=== PATIENT | male | born 1985 | race Caucasian/White ===

== ENCOUNTER 2017-08-30 17:32 | Emergency (ER) | payer OTHER ==
[2017-08-30 17:49] VITALS: BMI 28.8
--- NOTE | 2017-08-30 18:09 | PDOC ---
History of Present Illness - General Chief Complaint: Hematuria Stated Complaint: PAIN Time Seen by Provider: 08/30/17 17:59 - History of Present Illness Initial Comments: 31-year-old male presents for evaluation of one day of hematorrhea. He states he is not sexually active he denies any associated pain. No other associated symptoms. This has not happened to him in the past. 08/30/17 18:06 Past History - Past Medical History Allergies/Adverse Reactions: Allergies Allergy/AdvReac Type Severity Reaction Status Date / Time ampicillin Allergy Unknown Verified 08/30/17 17:46 Penicillins Allergy Unknown Verified 08/30/17 17:46 Home Medications: Ambulatory Orders Citalopram Hydrobromide [Citalopram HBr] 20 mg PO ASDIR 08/30/17 Risperidone [Risperdal] 1 mg PO BID 08/30/17 - Suicide/Smoking/Psychosocial Hx Smoking History: Never smoked Review of Systems - Review of Systems : Yes: See HPI, Hematuria All Other Systems: Reviewed and Negative *Physical Exam - Vital Signs Last Vital Signs Temp Pulse Resp BP Pulse Ox 98.0 F 96 H 18 132/79 99 08/30/17 17:45 08/30/17 17:45 08/30/17 17:45 08/30/17 17:45 08/30/17 17:45 - Physical Exam Comments: GENERAL: The patient is awake, alert, and fully oriented, in no acute distress. HEAD: Normal with no signs of trauma. EYES: Pupils equal, round and reactive to light, extraocular movements intact, sclera anicteric, conjunctiva clear. ENT: Ears normal, nares patent, oropharynx clear without exudates. Moist mucous membranes. NECK: Normal range of motion, supple without lymphadenopathy, JVD, or masses. LUNGS: Breath sounds equal, clear to auscultation bilaterally. No wheezes, and no crackles. HEART: Regular rate and rhythm, normal S1 and S2 without murmur, rub or gallop. ABDOMEN: Soft, nontender, normoactive bowel sounds. No guarding, no rebound. No masses. EXTERNAL GENETALIA: The external genitalia is normal without tenderness masses or any indication of blood around the meatus. EXTREMITIES: Normal range of motion, no edema. No clubbing or cyanosis. No cords, erythema, or tenderness. NEUROLOGICAL: Cranial nerves II through XII grossly intact. Normal speech, normal gait. PSYCH: Normal mood, normal affect. SKIN: Warm, Dry, normal turgor, no rashes or lesions noted. 08/30/17 18:08 Medical Decision Making - Medical Decision Making -year-old healthy male with hematorrhea times one day his exam is unimpressive I await urinalysis. 08/30/17 18:09 08/30/17 18:45 There is mild hematuria on urinalysis. I will send him home with urology follow- up in the next day or 2 he is hemodynamically stable. His exam is otherwise benign. 08/30/17 19:30 There was no orthostatic changes. *DC/Admit/Observation/Transfer Diagnosis at time of Disposition: Hematuria - Discharge Dispostion Disposition: HOME Condition at time of disposition: Stable Decision to Admit order: No - Referrals Referrals: Rick Bautista MD [Primary Care Provider] - Finn Marvin MD., MD [Staff Physician] - - Patient Instructions Printed Discharge Instructions: Blood in Urine, DI for Hematuria Additional Instructions: You do have blood in urine. Your examination is otherwise normal. It's very important few to follow-up with urology tomorrow return to the emergency room if your symptoms worsen or go unresolved or if you experience symptoms such as lightheadedness fever chills or night sweats prior to follow-up. - Post Discharge Activity
[2017-08-30 18:38] LABS: URINE APPEARANCE CLEAR; URINE BILIRUBIN NEGATIVE (<2.0 mg/dL); URINE BLOOD 3+ (NEGATIVE); URINE COLOR LTYELLOW; URINE GLUCOSE (UA) NEGATIVE (NEGATIVE); URINE KETONE NEGATIVE (NEGATIVE); URINE LEUK ESTERASE NEGATIVE (NEGATIVE); URINE NITRITE NEGATIVE (NEGATIVE); URINE PROTEIN NEGATIVE (NEGATIVE); URINE UROBILINOGEN NEGATIVE mg/dL (0.2-1.0)
[2017-08-30 19:13] VITALS: BP 128/72; PULSE 89; TEMP 97.9
== END 2017-08-30 19:52 | disposition home or self-care (01) ==
LOC: JERFT 17:32
DX: R31.9 Hematuria, unspecified (principal)
CPT/HCPCS: 81003; 81015; 87086; 99281-25

== ENCOUNTER 2019-06-04 06:16 | Emergency (ER) | payer OTHER ==
[2019-06-04 07:38] VITALS: BMI 28.3
[2019-06-04] MEDS ORDERED: SODIUM CHLORIDE 1,000 ML IV STA (07:42)
[2019-06-04] MEDS ORDERED: ACETAMINOPHEN 1000 MG/100 ML VIAL (NON FORMULARY) IVPB ONE (07:42)
--- NOTE | 2019-06-04 07:49 | PDOC ---
History of Present Illness - General Chief Complaint: Pain, Acute Stated Complaint: PAIN Time Seen by Provider: 06/04/19 07:34 History Source: Patient, Parent(s) Exam Limitations: No Limitations - History of Present Illness Initial Comments: 06/04/19 07:45 Patient is a 33-year-old male with developmental delays who presents to the ED with his parents for left-sided abdominal pain that started about midnight. Patient states that the pain is constant and nonradiating. He denies any fevers or chills. Denies any nausea, vomiting, diarrhea. He has no dysuria or hematuria. He has not taken anything for his symptoms. The pain has been unrelenting. The patient is not a smoker. He is allergic to penicillin. 06/04/19 07:46 Past History - Past Medical History Allergies/Adverse Reactions: Allergies Allergy/AdvReac Type Severity Reaction Status Date / Time ampicillin Allergy Unknown Verified 06/04/19 07:32 Penicillins Allergy Unknown Verified 06/04/19 07:32 Home Medications: Ambulatory Orders Citalopram Hydrobromide [Citalopram HBr] 20 mg PO DAILY 08/30/17 Risperidone [Risperdal] 1 mg PO HS 08/30/17 Hydrocodone/Acetaminophen [[place] 5-325 Tablet] 1 each PO Q6H PRN #12 tablet MDD 4 06/04/19 Tamsulosin HCl [Flomax] 0.4 mg PO DAILY 7 Days #7 cap 06/04/19 - Psycho Social/Smoking Cessation Hx Smoking History: Never smoked Hx Alcohol Use: No Drug/Substance Use Hx: No Review of Systems - Review of Systems Comments:: 06/04/19 07:47 - Review of Systems Able to Perform ROS?: Yes Constitutional: No: Fever, Chills, Loss of Appetite, Night Sweats, Weakness HEENTM: No: Eye Pain, Vision changes, Ear Pain, Throat Pain, Throat Swelling, Mouth Pain, Difficulty Swallowing Respiratory: No: Cough, Shortness of Breath, Wheezing, Sputum Production Cardiac (ROS): No: Chest Pain, Chest Tightness, Palpitations, Irregular Heart Beat, Edema ABD/GI: No: Nausea, Vomiting, Diarrhea; positive: Left-sided abdominal pain : No Dysuria, No Hematuria, No Frequency, No Urgency, No Penile Discharge/Pain Musculoskeletal: No: Muscle Pain, Back Pain, Joint Pain, Muscle Weakness, Neck Pain Integumentary: No: Lesions, Rash Neurological: No: Headache, Numbness, Tingling, Weakness, Speech Difficulties *Physical Exam - Vital Signs Last Vital Signs Temp Pulse Resp BP Pulse Ox 98.4 F 115 H 20 133/89 98 06/04/19 07:36 06/04/19 07:36 06/04/19 07:36 06/04/19 07:36 06/04/19 07:36 - Physical Exam 06/04/19 07:47 - Physical Exam General Appearance: Nourished, Appropriately Dressed, No Distress HEENT: EOMI, Normal Voice, No Muffled/Hoarse voice, No Nasal Congestion, No Rhinorrhea, Hearing Grossly Normal Neck: Supple, No Lymphadenopathy (R), No Lymphadenopathy (L), No Rigidity, No Decreased range of motion Respiratory/Chest: Lungs Clear, Normal Breath Sounds. No Respiratory Distress, No Accessory Muscle Use Cardiovascular: Regular Rhythm, Regular Rate, S1, S2 Gastrointestinal/Abdominal: Normal Bowel Sounds, Soft. No Rebound, No Rigidity; left upper quadrant and left mid abdominal tenderness to palpation. No rigidity. No CVA tenderness bilateral. Moderate voluntary guarding. Musculoskeletal: Normal Inspection. No Decreased Range of Motion Extremity: Normal Capillary Refill, Normal Inspection Integumentary: Normal Color, Dry. 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 Plan: -Saline lock and fluids ordered -Labs ordered -CT abdomen pelvis with contrast ordered -Tylenol IVPB ordered -Will reassess 06/04/19 11:15 The patient and his family have been made aware that he has a 3 mm stone on the left with mild hydronephrosis. The patient will likely be able to pass the stone. We will discharge him with Flomax and [place] for the pain. He will follow-up with urology, Dr. Marvin, for further evaluation and treatment. The family understands and agrees with this treatment and plan. The patient is also been given strainers and has been encouraged to use them and try to catch the stone. The patient is stable for discharge. Discharge - Discharge Information Problems reviewed: Yes Clinical Impression/Diagnosis: Left renal stone Condition: Stable Disposition: HOME - Additional Discharge Information Prescriptions: Tamsulosin HCl [Flomax] 0.4 mg PO DAILY #7 capsule Hydrocodone/Acetaminophen [[place] 5-325 Tablet] 1 each PO Q6H PRN #12 tablet MDD 4 PRN Reason: Pain - Follow up/Referral Referrals: Romel Kumari MD [Staff Physician] - Finn Marvin MD., MD [Staff Physician] - Call tomorrow - Patient Discharge Instructions Patient Printed Discharge Instructions: DI for Kidney Stones Additional Instructions: Get plenty of rest and drink plenty of water. Take the Flomax as prescribed. Take the [place] as needed only for severe pain. You can take ibuprofen for pain as well. Follow-up with urology within the next few days for repeat evaluation. A referral has been given to you and several names have been given. Return to the emergency department for high fevers, shaking chills, profuse vomiting, severe pain or any other worsening symptoms. - Post Discharge Activity
[2019-06-04] MEDS ORDERED: ACETAMINOPHEN INJECTION 100 ML IVPB ONE (07:51)
[2019-06-04 08:25] LABS: BASO % 0.5 % (0-2.0); EOS % 0.4 % (0-4.5); HEMATOCRIT 43.7 % (35.4-49); HEMOGLOBIN 15.3 GM/dL (11.7-16.9); LYMPH % 17.2 % (8-40); MCH 31.2 pg (25.7-33.7); MEAN CELL VOLUME 89.1 fl (80-96); MEAN PLT VOLUME 6.8 fl (7.5-11.1); MONO % 8.2 % (3.8-10.2); NEUT % 73.7 % (42.8-82.8); PLATELET COUNT 289 K/MM3 (134-434); RBC 4.91 M/mm3 (4.00-5.60); RDW 12.7 % (11.9-15.9); WHITE BLOOD COUNT 11.7 K/mm3 (4.0-10.0)
[2019-06-04 08:57] LABS: ALBUMIN 4.1 g/dl (3.4-5.0); BILIRUBIN,TOTAL 1.2 mg/dL (0.2-1); BLOOD UREA NITROGEN 11.3 mg/dL (7-18); CALCIUM 9.5 mg/dL (8.5-10.1); POTASSIUM 3.9 mmol/L (3.5-5.1); TOT PROT 7.8 g/dl (6.4-8.2)
[2019-06-04 09:15] LABS: EPI CELLS 0.3 /HPF (0-5/HPF); HYALINE CASTS 3 /lpf (0-8); URINE APPEARANCE CLEAR; URINE BACTERIA 0.2 /hpf (NEGATIVE); URINE BILIRUBIN NEGATIVE (NEGATIVE); URINE COLOR YELLOW; URINE GLUCOSE (UA) NEGATIVE (NEGATIVE); URINE KETONE NEGATIVE (NEGATIVE); URINE LEUK ESTERASE NEGATIVE (NEGATIVE); URINE NITRITE NEGATIVE (NEGATIVE); URINE PROTEIN NEGATIVE (NEGATIVE); URINE RBC 171 /hpf (0-4); URINE UROBILINOGEN 0.2 mg/dL (0.2-1.0); URINE WBC 1 /hpf (0-5)
[2019-06-04 11:29] VITALS: BP 129/72; PULSE 104; TEMP 98.2
== END 2019-06-04 11:41 | disposition home or self-care (01) ==
LOC: JER 06:16
DX: N13.2 Hydronephrosis with renal and ureteral calculous obstruction (principal); R62.50 Unspecified lack of expected normal physiological development in childhood; Z88.0 Allergy status to penicillin
CPT/HCPCS: 36415; 74176-TC; 80053; 81003; 83690; 85025; 87086; 99285-25; J0131; J7030

== ENCOUNTER 2021-09-04 19:20 | Emergency (ER) | payer OTHER ==
[2021-09-04 19:31] VITALS: BP 124/86; PULSE 105; TEMP 98; BMI 38.0
== END 2021-09-04 20:40 | disposition home or self-care (01) ==
LOC: JER 19:20 → JERFT 19:20
DX: S63.634A Sprain of interphalangeal joint of right ring finger, initial encounter (principal); Y99.9 Unspecified external cause status
CPT/HCPCS: 73130-TC-RT-FY; 99283-25

== ENCOUNTER 2021-11-26 10:09 | Emergency (ER) | payer OTHER ==
[2021-11-26 10:30] VITALS: BP 116/79; PULSE 105; RESP 22; TEMP 98.1; BMI 34.2
== END 2021-11-26 12:01 | disposition home or self-care (01) ==
LOC: JER 10:09
DX: H66.90 Otitis media, unspecified, unspecified ear (principal); R59.9 Enlarged lymph nodes, unspecified
CPT/HCPCS: 99283-25

== ENCOUNTER 2022-10-18 18:43 | Emergency (ER) | payer OTHER ==
[2022-10-18 18:57] VITALS: PULSE 107; TEMP 98.7; BMI 32.1
[2022-10-18 21:23] LABS: EPI CELLS 2 /uL (0-25.1); HYALINE CASTS 0 /uL (0-3.1); PH,URINE 5.5 (5.0-8.0); URINE APPEARANCE CLEAR; URINE BACTERIA 4 /uL (0-1359); URINE BILIRUBIN NEGATIVE (NEGATIVE); URINE COLOR YELLOW; URINE GLUCOSE (UA) NEGATIVE (NEGATIVE); URINE KETONE NEGATIVE (NEGATIVE); URINE LEUK ESTERASE NEGATIVE (NEGATIVE); URINE NITRITE NEGATIVE (NEGATIVE); URINE PROTEIN NEGATIVE (NEGATIVE); URINE RBC 1182 /uL (0-23.9); URINE UROBILINOGEN 0.2 mg/dL (0.2-1.0); URINE WBC 15 /uL (0-25.8)
[2022-10-18 22:50] LABS: BASO % 0.4 % (0-2.0); EOS % 1.6 % (0-4.5); HEMOGLOBIN 17.3 GM/dL (11.7-16.9); LYMPH % 34.5 % (8-40); MCH 30.7 pg (25.7-33.7); MCHC 34.6 g/dl (32.0-35.9); MEAN CELL VOLUME 88.6 fl (80-96); MEAN PLT VOLUME 6.4 fl (7.5-11.1); MONO % 7.8 % (3.8-10.2); NEUT % 55.7 % (42.8-82.8); PLATELET COUNT 316 10^3/uL (134-434); RBC 5.64 M/mm3 (4.00-5.60); RDW 13.4 % (11.9-15.9); WHITE BLOOD COUNT 10.3 K/mm3 (4.0-10.0)
[2022-10-18 23:21] LABS: POTASSIUM 4.1 mmol/L (3.5-5.1)
[2022-10-18 23:22] VITALS: BP 114/88; RESP 14
[2022-10-18 23:23] LABS: ALBUMIN 4.1 g/dl (3.4-5.0); CALCIUM 9.1 mg/dL (8.5-10.1)
[2022-10-18 23:24] LABS: BLOOD UREA NITROGEN 8.2 mg/dL (7-18)
[2022-10-18 23:27] LABS: CREATININE 0.9 mg/dL (0.55-1.3)
[2022-10-18 23:28] LABS: BILIRUBIN,TOTAL 0.4 mg/dL (0.2-1); TOT PROT 8.3 g/dl (6.4-8.2)
== END 2022-10-19 00:26 | disposition home or self-care (01) ==
LOC: JER 18:43
DX: N50.812 Left testicular pain (principal); R21 Rash and other nonspecific skin eruption; L29.9 Pruritus, unspecified; R10.9 Unspecified abdominal pain; L73.1 Pseudofolliculitis barbae; W21.03XA Struck by baseball, initial encounter; Y93.64 Activity, baseball
CPT/HCPCS: 36415; 76870-TC; 80053; 81003; 85025; 87086; 99284-25

== ENCOUNTER 2023-08-17 17:23 | Emergency (ER) | payer OTHER ==
[2023-08-17 17:41] VITALS: BP 115/67; PULSE 79; RESP 18; TEMP 98.3; BMI 30.2
[2023-08-17] MEDS ORDERED: IBUPROFEN 600 MG TABLET (FP) PO ONE (19:39)
[2023-08-17] MEDS: IBUPROFEN 600 MG TABLET (FP) PO ONE (19:41)
== END 2023-08-17 21:25 | disposition home or self-care (01) ==
LOC: JERFT 17:23
PROC: 0RSXXZZ Reposition Left Finger Phalangeal Joint, External Approach (ICD-10-PCS; principal; 2023-08-17)
DX: S63.283A Dislocation of proximal interphalangeal joint of left middle finger, initial encounter (principal); W06.XXXA Fall from bed, initial encounter
CPT/HCPCS: 73130-TC-LT-FY; 99283-25